=== PATIENT | female | born 1955 | race Caucasian/White ===

== ENCOUNTER 2017-03-12 18:12 | Inpatient (IN) | payer BC, OTHER ==
[2017-03-12] VITALS (9 sets, daily range): BP systolic 120–146; BP diastolic 58–83; PULSE 54–62; RESP 18–20; TEMP 96–97.9; O2SAT 94–99
[~2017-03-12] VITALS: Ht 157.5 cm; Wt 71.2 kg
[~2017-03-12 18:12] MED LIST: ASPI325T PO; ATEN1TAB74 PO; ATOR80TA PO; CALA120T PO; LISI40TA PO
[2017-03-12] MEDS ORDERED: MACR100C3 PO (18:33)
[2017-03-12] MEDS ORDERED: VERA120T3 PO (18:33)
[2017-03-12] MEDS ORDERED: ASPI325T PO (18:33)
[2017-03-12] MEDS ORDERED: ATEN1TAB73 PO (18:33)
[2017-03-12] MEDS ORDERED: BUPR150CR PO (18:33)
[2017-03-12] MEDS ORDERED: TRAM50TA PO (18:37)
[2017-03-12] MEDS ORDERED: SODIUM CHLORIDE 0.9% FLUSH 10 ML FLUSH IVF PRN (18:45)
--- NOTE | 2017-03-12 18:46 | PD ---
HPI Chief Complaint: Neuro Symptoms/ Deficits Time Seen by Provider: 18:28 Travel History International Travel<30 days: No Contact w/Intl Traveler<30days: No Traveled to known affect area: No History of Present Illness HPI 61-year-old female with history of CVA, anemia, anxiety, depression, hyperlipidemia, COPD, basilar artery aneurysm, subarachnoid hemorrhage surgery, here for evaluation of slurred speech, left upper and left lower extremity weakness. Symptoms started today at around 2:00 AM. She presents to the hospital here at around 6:15 PM. She was admitted to the hospital in April 2016 for similar symptoms which she states resolved. At that time she was found have acute/subacute ischemic areas of small strokes of the right parietal and right cerebellar lobes. She was discharged home at that time on aspirin. PFSH Past Medical History Hx Anticoagulant Therapy: Yes (ASA) Anemia: Yes Arthritis: No Anxiety: Yes Depression: Yes Heart Rhythm Problems: No Cancer: No Cardiovascular Problems: Yes High Cholesterol: Yes Chest Pain: No Congestive Heart Failure: No COPD: Yes Cerebrovascular Accident: Yes Diabetes: No Diminished Hearing: No Endocrine: No Genitourinary: No Headaches: Yes Hepatitis: No Hiatal Hernia: No Hypertension: Yes Immune Disorder: No Musculoskeletal: No Neurologic: Yes (Aneurysm ) Psychiatric: No Reproductive: No Respiratory: Yes Migraines: Yes Seizures: No Shingles: Yes Thyroid Disease: Yes (Benign cyst) Influenza Vaccination: No Menopausal: Yes : 3 Para: 2 : 1 Past Surgical History Abdominal Surgery: Yes AICD: No Appendectomy: Yes Cardiac Surgery: No Section: Yes (X's 1) Cholecystectomy: Yes Ear Surgery: No Endocrine Surgery: No Eye Surgery: No Genitourinary Surgery: No Gynecologic Surgery: Yes Hysterectomy: Yes Joint Replacement: No Neurologic Surgery: Yes (BRAIN SURGERY FOR SAH 1985) Oral Surgery: Yes (Broken jaw ) Pacemaker: No Thoracic Surgery: No Tonsillectomy: Yes Other Surgery: Yes (Vascular stents BLLE's ) Social History Alcohol Use: No Tobacco Use: Yes (1 PPD) Substance Use: No Allergies-Medications (Allergen,Severity, Reaction): Coded Allergies: estrogens, conjugated (Unverified Allergy, Severe, RESPIRATORY, 03/12/17) fluoxetine (Unverified Allergy, Severe, RESPIRATORY, 03/12/17) sertraline (Unverified Allergy, Severe, RESPIRATORY, 03/12/17) codeine (Unverified Allergy, Mild, NAUSEATES, 03/12/17) pseudoephedrine (Unverified Allergy, Mild, 03/12/17) egg (Verified Allergy, Unknown, 03/12/17) Reported Meds & Prescriptions Reported Meds & Active Scripts Active Reported Tramadol (Tramadol HCl) 50 Mg Tab 50 Mg PO Q4H PRN Macrodantin (Nitrofurantoin Macrocrystal) 100 Mg Cap 100 Mg PO BID Wellbutrin SR 12 HR (Bupropion HCl) 150 Mg Tab 150 Mg PO Q12HR Tenormin (Atenolol) 25 Mg Tab 25 Mg PO BID Verapamil (Verapamil HCl) 120 Mg Tab 120 Mg PO TID Aspirin 325 Mg Tab 325 Mg PO DAILY Review of Systems Except as stated in HPI: all other systems reviewed are Neg Physical Exam Narrative GENERAL: Well-developed, well-nourished, awake, alert, GCS 15. SKIN: Focused skin assessment warm/dry. HEAD: Atraumatic. Normocephalic. EYES: Pupils equal and round. No scleral icterus. No injection or drainage. ENT: Mucous membranes pink and moist. NECK: Trachea midline. No JVD. CARDIOVASCULAR: Regular rate and rhythm. RESPIRATORY: No accessory muscle use. Clear to auscultation. Breath sounds equal bilaterally. GASTROINTESTINAL: Abdomen soft, non-tender, nondistended. MUSCULOSKELETAL: No obvious deformities. No clubbing. No cyanosis. No edema. NEUROLOGICAL: Awake and alert. Slight left facial droop. Tongue deviation to the right. Muscle strength in right upper and right lower extremities 5 out of 5. Muscle strength in left upper and left upper extremities 4 out of 5 with decrease fancy packer strength on the left. Pronator drift on the left. Normal finger- nose-finger test on the right. Overshoots with [id number] test on the left. Slightly slurred speech. PSYCHIATRIC: Appropriate mood and affect; insight and judgment normal. Data Data Last Documented VS Vital Signs Date Time Temp Pulse Resp B/P (MAP) Pulse Ox O2 Delivery O2 Flow Rate FiO2 03/12/17 20:15 62 20 122/66 (84) 96 Room Air 03/12/17 19:26 2.00 03/12/17 19:15 97.9 Orders Orders Electrocardiogram (03/12/17 18:32) Prothrombin Time / Inr (Pt) (03/12/17 18:32) Act Partial Throm Time (Ptt) (03/12/17 18:32) Complete Blood Count With Diff (03/12/17 18:32) Comprehensive Metabolic Panel (03/12/17 18:32) Urinalysis - C+S If Indicated (03/12/17 18:32) Ct Brain W/O Iv Contrast(Rout) (03/12/17 18:32) Cta Brain W Iv Contrast W 3d (03/12/17 18:32) Cta Neck W Iv Contrast W 3d (03/12/17 18:32) Chest, Single Ap (03/12/17 18:32) Ecg Monitoring (03/12/17 18:32) Iv Access Insert/Monitor (03/12/17 18:32) Oximetry (03/12/17 18:32) Sodium Chloride 0.9% Flush (Ns Flush) (03/12/17 18:45) Ckmb (Isoenzyme) Profile (03/12/17 18:50) Troponin I (03/12/17 18:50) Iohexol 350 Inj (Omnipaque 350 Inj) (03/12/17 19:27) Labs Laboratory Tests Test 03/12/17 18:50 03/12/17 19:20 03/12/17 20:00 White Blood Count 8.5 TH/MM3 Red Blood Count 4.44 MIL/MM3 Hemoglobin 13.7 GM/DL Hematocrit 40.0 % Mean Corpuscular Volume 90.3 FL Mean Corpuscular Hemoglobin 30.9 PG Mean Corpuscular Hemoglobin Concent 34.3 % Red Cell Distribution Width 12.4 % Platelet Count 190 TH/MM3 Mean Platelet Volume 9.6 FL Neutrophils (%) (Auto) 70.8 % Lymphocytes (%) (Auto) 23.6 % Monocytes (%) (Auto) 3.6 % Eosinophils (%) (Auto) 1.1 % Basophils (%) (Auto) 0.9 % Neutrophils # (Auto) 6.0 TH/MM3 Lymphocytes # (Auto) 2.0 TH/MM3 Monocytes # (Auto) 0.3 TH/MM3 Eosinophils # (Auto) 0.1 TH/MM3 Basophils # (Auto) 0.1 TH/MM3 CBC Comment DIFF FINAL Differential Comment Prothrombin Time 9.6 SEC Prothromb Time International Ratio 0.9 RATIO Activated Partial Thromboplast Time 27.7 SEC Blood Urea Nitrogen 19 MG/DL Creatinine 0.67 MG/DL Random Glucose 160 MG/DL Total Protein 6.8 GM/DL Albumin 3.4 GM/DL Calcium Level 8.6 MG/DL Alkaline Phosphatase 81 U/L Aspartate Amino Transf (AST/SGOT) 17 U/L Alanine Aminotransferase (ALT/SGPT) 23 U/L Total Bilirubin 0.3 MG/DL Sodium Level 141 MEQ/L Potassium Level 3.6 MEQ/L Chloride Level 107 MEQ/L Carbon Dioxide Level 29.0 MEQ/L Anion Gap 5 MEQ/L Estimat Glomerular Filtration Rate 90 ML/MIN Total Creatine Kinase 45 U/L Troponin I LESS THAN 0.02 NG/ML Urine Color YELLOW Urine Turbidity SLIGHT Urine pH 7.0 Urine Specific [place] GREATER THAN 1.035 Urine Protein NEG mg/dL Urine Glucose (UA) NEG mg/dL Urine Ketones NEG mg/dL Urine Occult Blood NEG Urine Nitrite NEG Urine Bilirubin NEG Urine Leukocyte Esterase NEG Urine WBC 0-2 /hpf Urine Squamous Epithelial Cells 0-5 /hpf Urine Bacteria OCC /hpf Urine Mucus OCC /lpf Microscopic Urinalysis Comment CULT NOT INDICATED MDM Medical Decision Making Medical Screen Exam Complete: Yes Emergency Medical Condition: Yes Medical Record Reviewed: Yes Interpretation(s) EKG: Sinus, rate 54, normal axis, anterior and lateral T-wave inversions and ST depressions. Differential Diagnosis CVA, ICH, ACS, metabolic abnormality Narrative Course The patient is not a TPA candidate as she presented to the emergency department 14 hours after onset of symptoms. Initial vital signs show heart rate 58, blood pressure 146/66, pulse ox 95% on room air, oral temp of 97.6F. CBC is unremarkable. CMP is remarkable for random glucose 160, otherwise unremarkable. Cardiac enzymes are negative. UA is not suggestive of UTI. CT head: CONCLUSION: 1. Stable basilar tip aneurysm measuring approximately 6 mm. 2. Mild scattered periventricular white matter small vessel ischemic changes bilaterally. 3. Scattered old tiny lacunar infarcts within the bilateral basal ganglia. 4. No acute infarct, acute hemorrhage, midline shift or extra-axial fluid collections. CTA brain: CONCLUSION: 1. Stable basilar tip aneurysm measuring 8 mm in greatest dimension. 2. No new stenosis or occlusion. 3. Stable ectatic carotid siphons and distal right vertebral artery. 4. Stable distal left vertebral artery aneurysms. 5. Patent posterior communicating artery is bilaterally. CTA neck: CONCLUSION: 1. No significant carotid stenosis. 2. Dominant right vertebral artery. Patient and the patient's family were made aware of all findings. She took a full aspirin earlier today. She feels as though her symptoms are slightly improving since being in the emergency department. Again her symptoms include slight left facial droop, right tongue deviation, slight slurred speech, 4/5 muscle strength in her left upper and left lower extremities. Patient will be admitted for further treatment and evaluation of CVA. Case discussed with hospitalist Dr. Nieves who will admit the patient to her service. Diagnosis Primary Impression: CVA (cerebral vascular accident) Qualified Codes: I63.9 - Cerebral infarction, unspecified Admitting Information Admitting Physician Requests: Admit Wayne Hand MD Mar 12, 2017 18:46
--- NOTE | 2017-03-12 19:25 | RADRPT ---
EXAM DATE/TIME: 03/12/2017 19:00 [facility] COMPARISON: CHEST SINGLE AP, April 29, 2016, 19:16. INDICATIONS : Left side weakness MEDICAL HISTORY : Stroke. SURGICAL HISTORY : None. ENCOUNTER: Initial ACUITY: 2 days PAIN SCORE: 0/10 LOCATION: Bilateral chest FINDINGS: The heart is stable. The pulmonary vascular pattern is normal. The lungs are clear. Degenerative c hanges and scoliosis of the thoracic spine are noted. CONCLUSION: 1. No acute cardiopulmonary disease. 2. Degenerative changes and scoliosis of the thoracolumbar spine. Roberto Wood MD on March 12, 2017 at 19:19 Board Certified Radiologist. This report was verified electronically.
[2017-03-12] MEDS ORDERED: IOHEXOL 350 MG/ML 10 ML VIAL (for RAD DIAG) IVCONTRAST ONE (19:27)
[2017-03-12 19:50] LABS: CHLORIDE 107 MEQ/L (98-107); POTASSIUM 3.6 MEQ/L (3.5-5.1); SODIUM (NA) 141 MEQ/L (136-145)
[2017-03-12 19:53] LABS: ANION GAP 5 MEQ/L (5-15)
[2017-03-12 19:54] LABS: BLOOD UREA NITROGEN 19 MG/DL (7-18)
[2017-03-12 19:55] LABS: APTT (PATIENT) 27.7 SEC (24.3-30.1); INTERNATIONAL NORMALIZED RATIO 0.9 RATIO; PROTHROMBIN TIME - PATIENT 9.6 SEC (9.8-11.6)
[2017-03-12 19:56] LABS: ALT (GPT) 23 U/L (10-53); AST (GOT) 17 U/L (15-37); GLOMERULAR FILTRATION RATE 90 ML/MIN (>89)
[2017-03-12 19:58] LABS: TOTAL BILIRUBIN ADULT 0.3 MG/DL (0.2-1.0)
[2017-03-12 19:59] LABS: ALKALINE PHOSPHATASE 81 U/L (45-117)
[2017-03-12 20:00] LABS: CREATINE KINASE 45 U/L (26-192)
[2017-03-12 20:03] LABS: BASOPHIL # 0.1 TH/MM3 (0-0.2); BASOPHIL % 0.9 % (0.0-2.0); EOSINOPHIL # 0.1 TH/MM3 (0-0.4); EOSINOPHIL % 1.1 % (0.0-4.0); HEMO FLAGS DIFF FINAL; LYMPH % 23.6 % (9.0-44.0); MEAN CELL VOLUME 90.3 FL (80.0-100.0); MEAN CORPUSCULAR HEMOGLOBIN 30.9 PG (27.0-34.0); MEAN CORPUSCULAR HGB CONC 34.3 % (32.0-36.0); MONO % 3.6 % (0.0-8.0); NEUT % 70.8 % (16.0-70.0); PLATELET COUNT 190 TH/MM3 (150-450); RED BLOOD COUNT 4.44 MIL/MM3 (4.00-5.30); RED CELL DISTRIBUTION WIDTH 12.4 % (11.6-17.2); WHITE BLOOD COUNT 8.5 TH/MM3 (4.0-11.0)
[2017-03-12 20:12] LABS: BLOOD, URINE NEG (NEG); GLUCOSE,URINE NEG (NEG); KETONE, URINE NEG (NEG); NITRITE,URINE NEG (NEG)
--- NOTE | 2017-03-12 20:19 | RADRPT ---
EXAM DATE/TIME: 03/12/2017 19:27 [facility] COMPARISON: MRI BRAIN W/O CONTRAST, April 30, 2016, 9:27. CT BRAIN W/O CONTRAST, April 29, 2016, 19:31. INDICATIONS : Left upper and lower extremity weakness with slurred speech. RADIATION DOSE: 59.20 CTDIvol (mGy) MEDICAL HISTORY : Aneurysm, intracranial. Hypertension. Cerebrovascular disease. SURGICAL HISTORY : Craniotomy. ENCOUNTER: Initial ACUITY: 1 day PAIN SCALE: 0/10 LOCATION: Cranial TECHNIQUE: Multiple contiguous axial images were obtained of the head. Using automated exposure control and adj ustment of the mA and/or kV according to patient size, radiation dose was kept as low as reasonably a chievable to obtain optimal diagnostic quality images. DICOM format image data is available electro nically for review and comparison. FINDINGS: Tiny old lacunar infarcts are noted within the bilateral basal ganglia. Mild periventricular white matter small vessel ischemic changes are noted bilaterally. There is no acute infarct, acute hemorrhage, midline shift or extra-axial fluid collections. There a basilar tip aneurysm which is stable. This appears to measure 6 mm in size. CONCLUSION: 1. Stable basilar tip aneurysm measuring approximately 6 mm. 2. Mild scattered periventricular white matter small vessel ischemic changes bilaterally. 3. Scattered old tiny lacunar infarcts within the bilateral basal ganglia. 4. No acute infarct, acute hemorrhage, midline shift or extra-axial fluid collections. Roberto Wood MD on March 12, 2017 at 19:59 Board Certified Radiologist. This report was verified electronically.
[2017-03-12 20:21] LABS: URINE COLOR YELLOW (YELLW/STRAW)
[2017-03-12 20:22] LABS: MUCUS URINE OCC /lpf (OCC); SQUAMOUS EPITHELIAL CELL URINE 0-5 /hpf (0-5); WBC, URINE 0-2 /hpf (0-5)
[2017-03-12 20:23] LABS: BACTERIA, URINE OCC /hpf; COMMENT (UR) CULT NOT INDICATED; CULTURE IF INDICATED CULT NOT INDICATED
--- NOTE | 2017-03-12 20:44 | RADRPT ---
EXAM DATE/TIME: 03/12/2017 19:27 [facility] COMPARISON: CTA CAROTID ARTERIES W 3D RECON, April 30, 2016, 16:37. INDICATIONS : Left upper and lower extremity weakness with slurred speech. IV CONTRAST: 100 cc Omnipaque 350 (iohexol) IV ; Cumulative dose for multiple exams. RADIATION DOSE: 42.22 CTDIvol (mGy) ; Combined studies MEDICAL HISTORY : Aneurysm, intracranial. Cerebrovascular disease. Hypertension. SURGICAL HISTORY : Craniotomy. ENCOUNTER: Initial ACUITY: 1 day PAIN SCALE: 0/10 LOCATION: neck Elevated flow velocities and ICA/CCA ratios have been found to correlate with increased degrees of vessel stenosis, calculated as percentage of diameter relative to a normal segment of distal ICA/CCA. TECHNIQUE: Volumetric scanning was performed using a multirow detector CT scanner. The data was post processed with a variety of visualization algorithms including full-volume maximum intensity projection, multip lanar sliding thin-slab reformation, curved-planar reformation, and surface-rendering techniques. Us ing automated exposure control and adjustment of the mA and/or kV according to patient size, radiatio n dose was kept as low as reasonably achievable to obtain optimal diagnostic quality images. DICOM f ormat image data is available electronically for review and comparison. FINDINGS: AORTIC ARCH: There is a three-vessel origin of the great vessels from the aorta. Mild calcified atherosclerotic p laque is again noted within the aortic arch. No evidence of ostial narrowing. RIGHT CAROTID: The common carotid artery is intact. The carotid bulb has a normal configuration without ulceration o r narrowing. Minimal eccentric calcified plaque is noted at the right carotid bifurcation. The [employer] al carotid artery lumen is smooth without stenosis. The external carotid artery is intact. LEFT CAROTID: The common carotid artery is intact. The carotid bulb has a normal configuration without ulceration or narrowing. Mild to moderate calcified plaque is again identified in the proximal internal carotid artery. The external carotid artery is intact. VERTEBRALS: The right vertebral artery remains dominant. No stenotic lesions are seen. CONCLUSION: 1. No significant carotid stenosis. 2. Dominant right vertebral artery. Roberto Wood MD on March 12, 2017 at 20:39 Board Certified Radiologist. This report was verified electronically.
--- NOTE | 2017-03-12 20:56 | RADRPT ---
EXAM DATE/TIME: 03/12/2017 19:27 [facility] COMPARISON: CTA BRAIN W 3D RECON, April 30, 2016, 16:37. INDICATIONS : Left upper and lower extremity weakness with slurred speech. IV CONTRAST: 100 cc Omnipaque 350 (iohexol) IV ; Cumulative dose for multiple exams. RADIATION DOSE: 42.22 CTDIvol (mGy) ; Combined studies MEDICAL HISTORY : Aneurysm, intracranial. Hypertension. Cerebrovascular disease. SURGICAL HISTORY : Craniotomy. ENCOUNTER: Initial ACUITY: 1 day PAIN SCALE: 0/10 LOCATION: Cranial TECHNIQUE: Volumetric scanning was performed using a multi-row detector CT scanner. The data was post processed with a variety of visualization algorithms including full volume maximum intensity projection, multi -planar sliding thin slab reformation, curved planar reformation, and surface rendering techniques. Using automated exposure control and adjustment of the mA and/or kV according to patient size, radiat ion dose was kept as low as reasonably achievable to obtain optimal diagnostic quality images. DICO M format image data is available electronically for review and comparison. FINDINGS: The carotid siphons remains ectatic. No significant stenosis or occlusion of the middle or anterior cerebral arteries is noted. Bilateral posterior communicating arteries are again noted and supply th e posterior cerebral arteries bilaterally. No aneurysm is identified within the anterior circulation . There is a stable basilar tip aneurysm which measures 8 mm in greatest dimension. The right verte bral artery is again ectatic in appearance. Aneurysm of the right distal vertebral artery proximal t o the PICA origin is again noted. Left vertebral artery again terminates in the PICA. CONCLUSION: 1. Stable basilar tip aneurysm measuring 8 mm in greatest dimension. 2. No new stenosis or occlusion. 3. Stable ectatic carotid siphons and distal right vertebral artery. 4. Stable distal left vertebral artery aneurysms. 5. Patent posterior communicating artery is bilaterally. Roberto Wood MD on March 12, 2017 at 20:34 Board Certified Radiologist. This report was verified electronically.
[2017-03-12] MEDS ORDERED: ENALAPRILAT 1.25 MG/ML VIAL IV PRN (21:15)
[2017-03-12] MEDS ORDERED: GLUCAGON 1 MG/ML VIAL OTHER PRN (21:15)
[2017-03-12] MEDS ORDERED: SODIUM CHLORIDE 0.9% FLUSH 5 ML FLUSH IV FLUSH PRN (21:15)
[2017-03-12] MEDS ORDERED: DEXTROSE 50% IN WATER 50 ML VIAL(D50) IV PUSH PRN (21:15)
[2017-03-12] MEDS: SODIUM CHLOR 0.9% 1000 ML INJ 1,000 ML IV SCH ×2 (22:00→22:15)
[2017-03-13] VITALS (8 sets, daily range): BP systolic 134–147; BP diastolic 66–87; PULSE 50–60; RESP 18–20; TEMP 95.7–98.1; O2SAT 93–98
[2017-03-13] MEDS ORDERED: INSULIN ASPART SUPPLEMENTAL SCALE SQ SCH (07:00)
[2017-03-13] MEDS: SODIUM CHLOR 0.9% 1000 ML INJ 1,000 ML IV SCH (08:00)
[2017-03-13] MEDS ORDERED: NALOXONE HCL 0.4 MG/ML AMP IV PRN (08:30)
[2017-03-13] MEDS ORDERED: MAGNESIUM HYDROXIDE SUSP 30 ML CUP PO PRN (08:30)
[2017-03-13] MEDS ORDERED: BISACODYL 10 MG SUPP RECTAL PRN (08:30)
[2017-03-13] MEDS ORDERED: LACTULOSE SYRUP 20 GM/30 ML CUP PO PRN (08:30)
[2017-03-13] MEDS ORDERED: ONDANSETRON HCL 4 MG/2 ML VIAL IVP PRN (08:30)
[2017-03-13] MEDS ORDERED: ACETAMINOPHEN 325 MG TAB PO PRN ×2 (08:30)
[2017-03-13] MEDS ORDERED: SENNOSIDES 8.6 MG TAB PO PRN (08:30)
[2017-03-13 08:56] LABS: CREATINE KINASE 43 U/L (26-192)
[2017-03-13] MEDS: SODIUM CHLORIDE 0.9% FLUSH 5 ML FLUSH IV FLUSH SCH ×2 (09:00→20:48)
[2017-03-13] MEDS ORDERED: ASPIRIN 300 MG SUPP RECTAL SCH (09:00)
[2017-03-13] MEDS: DOCUSATE SODIUM 50 MG/SENNA 8.6 MG TAB PO SCH ×2 (09:00→20:47)
[2017-03-13] MEDS ORDERED: ASPIRIN 300 MG SUPP RECTAL PRN (09:45)
--- NOTE | 2017-03-13 09:59 | HHI.HP ---
[facility] Beckie Atkinson D.O. Admission Diagnosis CVA Diagnoses: Chief Complaint: Strokelike symptoms Travel History International Travel<30 Days: No Contact w/Intl Traveler <30 Da: No Traveled to Known Affected Are: No History of Present Illness This is a 61-year-old female with a history of CVA with no residual deficits, anemia, hyperlipidemia, PAD, COPD, basilar artery aneurysm, subarachnoid hemorrhage and tobacco abuse. She presents to the emergency department because of neuro symptoms. 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 She came home from work early yesterday morning and her noted that she was slurred and dragging her left lower extremity. She also felt she was dropping things from her left hand. She refused to come to the hospital and went to bed. She woke up later and did not notice any deficits and reported to work. When she arrived she felt nauseous and her coworkers noticed that she didn't look right. She drove back home and then came to the hospital. She has history of acute/subacute ischemic areas of small strokes of the right parietal and right cerebral lobes in April 2016 and has been taking aspirin. At this time, she feels better but still feels weak on the left upper and left lower extremities. Nausea has resolved and asking for food. Reports she had 4 loose stools after receiving oral contrast. Denies abdominal pain, fever, chills, headache, visual change, neck pain, chest pain and shortness of breath. All other systems reviewed negative. Review of Systems Except as stated in HPI: all other systems reviewed are Neg Past Family Social History Past Medical History As previously mentioned Past Surgical History Appendectomy, section, cholecystectomy, hysterectomy oral surgery, tonsillectomy and vascular stenting of bilateral lower extremities Reported Medications Tramadol (Tramadol HCl) 50 Mg Tab 50 Mg PO Q4H PRN Macrodantin (Nitrofurantoin Macrocrystal) 100 Mg Cap 100 Mg PO BID Wellbutrin SR 12 HR (Bupropion HCl) 150 Mg Tab 150 Mg PO Q12HR Tenormin (Atenolol) 25 Mg Tab 25 Mg PO BID Verapamil (Verapamil HCl) 120 Mg Tab 120 Mg PO TID Aspirin 325 Mg Tab 325 Mg PO DAILY Allergies: Coded Allergies: estrogens, conjugated (Unverified Allergy, Severe, RESPIRATORY, 03/12/17) fluoxetine (Unverified Allergy, Severe, RESPIRATORY, 03/12/17) sertraline (Unverified Allergy, Severe, RESPIRATORY, 03/12/17) codeine (Unverified Allergy, Mild, NAUSEATES, 03/12/17) pseudoephedrine (Unverified Allergy, Mild, 03/12/17) egg (Verified Allergy, Unknown, 03/12/17) Family History CVA Social History Smokes a pack per day. Does not drink. Physical Exam Vital Signs Vital Signs Date Time Temp Pulse Resp B/P (MAP) Pulse Ox O2 Delivery O2 Flow Rate FiO2 03/13/17 08:21 95.7 60 19 134/66 (88) 98 03/13/17 08:09 50 03/13/17 04:00 96.3 58 20 144/75 (98) 93 03/12/17 23:26 96 21 03/12/17 23:00 57 03/12/17 22:21 96.0 54 20 142/80 (100) 95 03/12/17 22:12 56 20 137/68 (91) 98 03/12/17 21:15 56 20 120/83 (95) 99 Room Air 03/12/17 20:15 62 20 122/66 (84) 96 Room Air 03/12/17 19:26 62 20 97 2.00 03/12/17 19:15 97.9 57 20 146/58 (87) 94 03/12/17 18:36 55 18 146/58 (87) 97 Room Air 03/12/17 18:30 57 03/12/17 18:22 97.6 58 18 146/66 (92) 95 Physical Exam GENERAL: This is a well-nourished, well-developed patient, in no apparent distress. SKIN: No rashes, ecchymoses or lesions. Cool and dry. HEAD: Atraumatic. Normocephalic. No temporal or scalp tenderness. EYES: Pupils equal round and reactive. Extraocular motions intact. No scleral icterus. No injection or drainage. ENT: Nose without bleeding, purulent drainage or septal hematoma. Throat without erythema, tonsillar hypertrophy or exudate. Uvula midline. Airway patent. NECK: Trachea midline. No JVD or lymphadenopathy. Supple, nontender, no meningeal signs. CARDIOVASCULAR: Regular rate and rhythm without murmurs, gallops, or rubs. RESPIRATORY: Clear to auscultation. Breath sounds equal bilaterally. No wheezes , rales, or rhonchi. GASTROINTESTINAL: Abdomen soft, non-tender, nondistended. No guarding. MUSCULOSKELETAL: Extremities without clubbing, cyanosis, or edema. No joint tenderness, effusion, or edema noted. No calf tenderness. Negative Homans sign bilaterally. NEUROLOGICAL: Awake and alert. Cranial nerves II through XII intact. Sensory grossly within normal limits. She is weak left upper and lower extremities but able to raise against resistance . Normal speech. Laboratory Laboratory Tests Test 03/12/17 18:50 03/12/17 19:20 03/12/17 20:00 03/13/17 05:49 White Blood Count 8.5 Red Blood Count 4.44 Hemoglobin 13.7 Hematocrit 40.0 Mean Corpuscular Volume 90.3 Mean Corpuscular Hemoglobin 30.9 Mean Corpuscular Hemoglobin Concent 34.3 Red Cell Distribution Width 12.4 Platelet Count 190 Mean Platelet Volume 9.6 Neutrophils (%) (Auto) 70.8 Lymphocytes (%) (Auto) 23.6 Monocytes (%) (Auto) 3.6 Eosinophils (%) (Auto) 1.1 Basophils (%) (Auto) 0.9 Neutrophils # (Auto) 6.0 Lymphocytes # (Auto) 2.0 Monocytes # (Auto) 0.3 Eosinophils # (Auto) 0.1 Basophils # (Auto) 0.1 CBC Comment DIFF FINAL Differential Comment Prothrombin Time 9.6 Prothromb Time International Ratio 0.9 Activated Partial Thromboplast Time 27.7 Blood Urea Nitrogen 19 Creatinine 0.67 Random Glucose 160 Total Protein 6.8 Albumin 3.4 Calcium Level 8.6 Alkaline Phosphatase 81 Aspartate Amino Transf (AST/SGOT) 17 Alanine Aminotransferase (ALT/SGPT) 23 Total Bilirubin 0.3 Sodium Level 141 Potassium Level 3.6 Chloride Level 107 Carbon Dioxide Level 29.0 Anion Gap 5 Estimat Glomerular Filtration Rate 90 Total Creatine Kinase 45 Troponin I LESS THAN 0.02 Urine Color YELLOW Urine Turbidity SLIGHT Urine pH 7.0 Urine Specific [place] GREATER THAN 1.035 Urine Protein NEG Urine Glucose (UA) NEG Urine Ketones NEG Urine Occult Blood NEG Urine Nitrite NEG Urine Bilirubin NEG Urine Leukocyte Esterase NEG Urine WBC 0-2 Urine Squamous Epithelial Cells 0-5 Urine Bacteria OCC Urine Mucus OCC Microscopic Urinalysis Comment CULT NOT INDICATED Test 03/13/17 07:50 Total Creatine Kinase 43 Troponin I LESS THAN 0.02 Result Diagram: 03/12/17 1850 03/12/171919 Imaging EKG tracing reviewed by me with sinus rhythm to inversion in V1 to V6 Chest x-ray image interpreted by me with no acute cardiopulmonary disease Last Impressions Neck CTA 03/12/171831 Signed Impressions: Service Date/Time: Sunday, March 12, 2017 19:27 - CONCLUSION: 1. No significant carotid stenosis. 2. Dominant right vertebral artery. Roberto Wood MD Head CTA 03/12/171831 Signed Impressions: Service Date/Time: Sunday, March 12, 2017 19:27 - CONCLUSION: 1. Stable basilar tip aneurysm measuring 8 mm in greatest dimension. 2. No new stenosis or occlusion. 3. Stable ectatic carotid siphons and distal right vertebral artery. 4. Stable distal left vertebral artery aneurysms. 5. Patent posterior communicating artery is bilaterally. Roberto Wood MD Head CT 03/12/171831 Signed Impressions: Service Date/Time: Sunday, March 12, 2017 19:27 - CONCLUSION: 1. Stable basilar tip aneurysm measuring approximately 6 mm. 2. Mild scattered periventricular white matter small vessel ischemic changes bilaterally. 3. Scattered old tiny lacunar infarcts within the bilateral basal ganglia. 4. No acute infarct, acute hemorrhage, midline shift or extra-axial fluid collections. Roberto Wood MD Chest X-Ray 03/12/171831 Signed Impressions: Service Date/Time: Sunday, March 12, 2017 19:00 - CONCLUSION: 1. No acute cardiopulmonary disease. 2. Degenerative changes and scoliosis of the thoracolumbar spine. MD Alessandro Posadasi VTE Risk Assessment Caprini VTE Risk Assessment: Mod/High Risk (score >= 2) Caprini Risk Assessment Model Point Value = 1 Point Value = 2 Point Value = 3 Point Value = 5 Age 41-60 Minor surgery BMI > 25 kg/m2 Swollen legs Varicose veins or History of unexplained or recurrent spontaneous Oral contraceptives or hormone replacement Sepsis (< 1 month) Serious lung disease, including pneumonia (< 1 month) Abnormal pulmonary function Acute myocardial infarction Congestive heart failure (< 1 month) History of inflammatory bowel disease Medical patient at bed rest Age 61-74 Arthroscopic surgery Major open surgery (> 45 min) Laparoscopic surgery (> 45 min) Malignancy Confined to bed (> 72 hours) Immobilizing plaster cast Central venous access Age >= 75 History of VTE Family history of VTE Factor V Leiden Prothrombin 29147H Lupus anticoagulant Anticardiolipin antibodies Elevated serum homocysteine Heparin-induced thrombocytopenia Other congenital or acquired thrombophilia Stroke (< 1 month) Elective arthroplasty Hip, pelvis, or leg fracture Acute spinal cord injury (< 1 month) Prophylaxis Regimen Total Risk Factor Score Risk Level Prophylaxis Regimen 0-1 Low Early ambulation 2 Moderate Order ONE of the following: *Sequential Compression Device (SCD) *Heparin 5000 units SQ BID 3-4 Higher Order ONE of the following medications: *Heparin 5000 units SQ TID *Enoxaparin/Lovenox 40 mg SQ daily (WT < 150 kg, CrCl > 30 mL/min) *Enoxaparin/Lovenox 30 mg SQ daily (WT < 150 kg, CrCl > 10-29 mL/min) *Enoxaparin/Lovenox 30 mg SQ BID (WT < 150 kg, CrCl > 30 mL/min) AND/OR *Sequential Compression Device (SCD) 5 or more Highest Order ONE of the following medications: *Heparin 5000 units SQ TID (Preferred with Epidurals) *Enoxaparin/Lovenox 40 mg SQ daily (WT < 150 kg, CrCl > 30 mL/min) *Enoxaparin/Lovenox 30 mg SQ daily (WT < 150 kg, CrCl > 10-29 mL/min) *Enoxaparin/Lovenox 30 mg SQ BID (WT < 150 kg, CrCl > 30 mL/min) AND *Sequential Compression Device (SCD) Assessment and Plan Problem List: (1) Slurred speech ICD Code: R47.81 - Slurred speech Status: Acute Assessment and Plan This is a 61-year-old female with a history of CVA with no residual deficits, anemia, hyperlipidemia, PAD, COPD, basilar artery aneurysm, subarachnoid hemorrhage and tobacco abuse. She presents to the emergency department because of neuro symptoms. Slurred speech and left-sided weakness with a history of CVA. This is likely CVA. Stroke workup underway. MRI and MRA of the brain, echocardiogram and monitor on telemetry. Risk factor modifications. Obtain lipid profile and A1c. Tobacco cessation. Consult neurology, PT, OT and ST. Allow permissive hypertension with IV fluids and hold BP medications for now. EKG shows NSR with normal intervals, normal QRS complexes, no ST elevation or depression, and no arrhythmias. The patient denies chest pain. CK and troponin within normal limits. Likely related to LEAD FORMER insult. Trend cardiac enzymes. She will need stress test at some point Diarrhea likely secondary to contrast. IVF and rpt BMP. Monitor for dehydration Partially treated UTI. Asymptomatic. Complete treatment of Macrodantin. DVT prophylaxis with SCD. We'll start pharmacological prophylaxis pending MRI of the brain Code Status full Discussed Condition With pt Dima Torrez MD Mar 13, 2017 09:59
[2017-03-13] MEDS: NITROFURANTOIN MONOHYD MACROCR 100 MG CAP PO SCH ×2 (10:03→17:53)
[2017-03-13] MEDS: ASPIRIN 325 MG TAB PO SCH (10:03)
[2017-03-13] MEDS: buPROPion HCL 150 MG SUSTAINED RELEASE TAB PO SCH ×2 (10:04→20:47)
[2017-03-13] MEDS: NICOTINE 21 MG/24 HR PATCH T-DERMAL SCH (10:05)
[2017-03-13 10:12] LABS: HDL CHOLESTEROL 39.5 MG/DL (40.0-60.0); LDL CHOLESTEROL 102 MG/DL (0-99)
--- NOTE | 2017-03-13 10:29 | MB ---
cc: YOVANY NJ M.D. DATE OF CONSULTATION: 03/13/2017 HISTORY OF PRESENT ILLNESS Kerri Saldana is a 61-year-old seen in neurological consultation in regards to new onset left-sided weakness and slurred speech. The patient describes that a year ago she had a stroke with somewhat similar symptoms. She then was started on aspirin. She recovered well from that stroke. She also has a history of subarachnoid hemorrhage and known basilar tip aneurysm. She had a bleeding in 1985 and they considered surgery but the aneurysm was in an area felt to be inoperable. She recovered well from that aneurysmal subarachnoid hemorrhage. She was recently started on Wellbutrin. She has a history of hyperlipidemia, COPD and migraines. She has been on aspirin since April last year. She is also on tramadol, Tenormin, Verapamil, Macrodantin. No lipid-lowering agents. She smokes a pack a day, no substance abuse. NEUROLOGIC EXAMINATION Shows an alert and pleasant woman. Speech is mildly dysarthric. Ocular movements and visual smalls are full. There is slight left facial weakness. She does have some left hemiparesis, she raises the arm and there is pronation drift on the left and there is weakness on the left adult care provider and fine finger coordination, though she feels better today than yesterday. Left lower extremity also is mild to moderately weak on the bedside exam. Reflexes brisker on the left, plantar response probably extensor bilaterally. ANCILLARY DATA The CT brain shows old lacunars bilateral basal ganglia. CT angio head and neck shows the stable 8 mm basilar tip aneurysm. The right vertebra is dominant. No significant carotid artery disease. ASSESSMENT New left-sided weakness and dysarthric speech. MRI of brain pending. Suspect new lacunar stroke. She has been on aspirin. Management is difficult because she has known basilar tip aneurysm and it bled in 1985. Checking a lipid profile and considering a statin as well. Will consider adding Plavix to a baby aspirin but only for a period of 4 weeks or so. Rehab. I will follow the neurological care. Thank you for asking us to participate in her care. Yovany Nj MD OFC/TLL /8:57 AM /10:12 AM
[2017-03-13] MEDS: INSULIN ASPART SUPPLEMENTAL SCALE SQ SCH ×3 (12:00→20:47)
[2017-03-13] MEDS: LACTOBACILLUS ACIDOPHILUS TAB PO SCH ×2 (15:28→17:53)
--- NOTE | 2017-03-13 15:29 | RADRPT ---
EXAM DATE/TIME: 03/13/2017 13:15 [facility] COMPARISON: MRI BRAIN W/O CONTRAST, April 30, 2016, 9:27. INDICATIONS : CVA. MEDICAL HISTORY : Stroke Hypertension. Aneurysm, intracranial. SURGICAL HISTORY : Cholecystectomy. Appendectomy. Hysterectomy. Tonsils, . ENCOUNTER: Initial ACUITY: 2 day PAIN SCORE: 2/10 LOCATION: Bilateral cranial TECHNIQUE: Multiplanar, multisequence MRI of the brain was performed without contrast. FINDINGS: MRI of the brain is performed in sagittal, axial and coronal planes. The craniocervical junction and midline structures are unremarkable. Diffusion weighted images demonstrate acute infarct in the insul ar cortex on the right side measuring 15 mm in diameter with a second area of white matter abnormalit y just H. year the right lateral ventricle.. There is no evidence of acute cortical infarction, acute hemorrhage, mass effect or midline shift is seen. There is periventricular hyperintensity on the T2 weighted images consistent with small vessel vascular disease significantly more than expected in a p atient of this age.there is also chronic ischemic change in the brainstem at the level of the middle cerebellar peduncle and within the left cerebellar hemisphere. Posterior fossa structures are unremar kable. CONCLUSION: 1. Acute infarct involving insular cortex on the right side. No hemorrhage is seen. Mulugeta James MD on March 13, 2017 at 15:24 Board Certified Radiologist. This report was verified electronically.
[2017-03-13] MEDS: traMADol HCL 50 MG TAB PO PRN ×2 (15:35→20:52)
[2017-03-13] MEDS ORDERED: ATOR20TA15 PO (15:38)
--- NOTE | 2017-03-13 15:39 | HHI.DCPOC ---
Discharge Care Plan Diagnosis: (1) Slurred speech Your Health Problems Are: Difficulty with ADL Exercise Tolerance Goals to Promote Your Health * To prevent worsening of your condition and complications * To maintain your health at the optimal level Directions to Meet Your Goals Take your medications as prescribed Follow your dietary instruction Follow activity as directed Keep your appointments as scheduled Take your immunizations and boosters as scheduled If your symptoms worsen call your PCP, if no PCP go to Urgent Care Center or Emergency Room Smoking is Dangerous to Your Health. Avoid second hand smoke Call the 24-hour hour crisis hotline for domestic abuse at Dima Torrez MD Mar 13, 2017 15:39
[2017-03-13 15:42] LABS: HEMOGLOBIN A1a 1.3 %; HEMOGLOBIN A1b 0.8 %; HEMOGLOBIN Ao 84.7 %; HEMOGLOBIN F 1.5 %; HEMOGLOBIN LA1C 1.9 %; HEMOGLOBIN P3 3.8 %
--- NOTE | 2017-03-13 15:45 | RADRPT ---
EXAM DATE/TIME: 03/13/2017 13:15 [facility] COMPARISON: CTA CAROTID ARTERIES W 3D RECON, March 12, 2017, 19:27. MRI BRAIN W/O CONTRAST, March 13, 2017, 13 :15. CTA BRAIN W 3D RECON, March 12, 2017, 19:27. INDICATIONS : CVA. MEDICAL HISTORY : Stroke Aneurysm, intracranial. SURGICAL HISTORY : Cholecystectomy. Appendectomy. Hysterectomy. Tonsils, Stents, . ENCOUNTER: Initial ACUITY: 3 day PAIN SCORE: 1/10 LOCATION: Bilateral cranial Please note a normal MRA of the brain does not entirely exclude the possibility of a small aneurysm, nor the possibility of distal intracranial vessel disease. TECHNIQUE: 3D time of flight MRA was performed. Source images, multiplanar STS MIP, and 3D volume MIP reconstru ctions were reviewed. FINDINGS: Markedly irregular dolichoectasia of the vertebrobasilar system is noted with areas of mild fusiform aneurysmal dilatation involving the distal right vertebral artery and a saccular aneurysm at the basi lar tip, unchanged from comparison. The posterior cerebral arteries arise in fashion. The anter ior circulation is stable and intact. CONCLUSION: Stable abnormal appearance of the [place] structures. Evangelist Siegel MD on March 13, 2017 at 15:39 Board Certified Radiologist. This report was verified electronically.
--- NOTE | 2017-03-13 15:50 | EKG ---
Date Performed: 03/12/2017 Time Performed: 18:40:29 PTAGE: 61 years EKG: SINUS BRADYCARDIA ST DEVIATION AND MODERATE T-WAVE ABNORMALITY, CONSIDER ANTEROLATERAL ISCH EMIA ABNORMAL ECG Compared to PREVIOUS TRACING , precordial T-wave changes are somewhat more prominent, consider ischem ia. PREVIOUS TRACIN04/29/2016 19.03 DOCTOR: Ravinder Weiss Interpretating Date/Time 03/13/2017 15:49:15
--- NOTE | 2017-03-13 15:51 | EKG ---
Date Performed: 03/13/2017 Time Performed: 10:21:14 PTAGE: 61 years EKG: SINUS BRADYCARDIA MINIMAL VOLTAGE CRITERIA FOR LVH, CONSIDER NORMAL VARIANT NONSPECIFIC T-W AVE ABNORMALITY BORDERLINE ECG Since PREVIOUS TRACING , no significant change noted PREVIOUS TRACIN03/12/2017 18.40 DOCTOR: Ravinder Weiss Interpretating Date/Time 03/13/2017 15:49:22
[2017-03-13] MEDS: ATORVASTATIN 20 MG TAB PO SCH (20:47)
[2017-03-14] VITALS (7 sets, daily range): BP systolic 136–193; BP diastolic 71–91; PULSE 52–67; RESP 16–19; TEMP 96–97.2; O2SAT 95–98
[2017-03-14] MEDS: SODIUM CHLOR 0.9% 1000 ML INJ 1,000 ML IV SCH ×2 (05:41→20:09)
[2017-03-14 06:26] LABS: POTASSIUM 3.4 MEQ/L (3.5-5.1)
[2017-03-14 06:29] LABS: BICARBONATE 25.6 MEQ/L (21.0-32.0)
[2017-03-14] MEDS: INSULIN ASPART SUPPLEMENTAL SCALE SQ SCH ×4 (06:37→19:54)
[2017-03-14] MEDS: NICOTINE 21 MG/24 HR PATCH T-DERMAL SCH (09:00)
[2017-03-14] MEDS: DOCUSATE SODIUM 50 MG/SENNA 8.6 MG TAB PO SCH ×2 (09:00→19:54)
[2017-03-14] MEDS: SODIUM CHLORIDE 0.9% FLUSH 5 ML FLUSH IV FLUSH SCH ×2 (09:00→19:53)
[2017-03-14] MEDS: REMOVE OLD PATCH T-DERMAL SCH (09:00)
[2017-03-14] MEDS: LACTOBACILLUS ACIDOPHILUS TAB PO SCH ×3 (09:02→17:22)
[2017-03-14] MEDS: NITROFURANTOIN MONOHYD MACROCR 100 MG CAP PO SCH ×2 (09:03→17:22)
[2017-03-14] MEDS: ASPIRIN 325 MG TAB PO SCH (09:03)
[2017-03-14] MEDS: buPROPion HCL 150 MG SUSTAINED RELEASE TAB PO SCH ×2 (09:03→20:09)
[2017-03-14] MEDS ORDERED: POTASSIUM CHLORIDE 10 MEQ CONTROLLED RELEASE TAB PO ONE (10:30)
--- NOTE | 2017-03-14 12:02 | HHI.PR ---
Subjective Remarks Follow-up CVA. Denies nausea. Improving left-sided weakness. Able to feed himself ambulated hallway. Discussed with RN, patient medically stable for discharge pending echocardiogram. Also need clarification with neurology if Plavix needs to be added Objective Vitals Vital Signs Date Time Temp Pulse Resp B/P (MAP) Pulse Ox O2 Delivery O2 Flow Rate FiO2 03/14/17 08:21 96.6 59 19 136/82 (100) 96 03/14/17 04:25 96.6 60 18 192/71 (111) 98 03/14/17 00:00 96.5 63 18 161/79 (106) 95 03/13/17 21:00 94 21 03/13/17 20:00 98.1 58 18 147/87 (107) 95 03/13/17 20:00 55 03/13/17 17:57 96.3 57 18 141/80 (100) 96 03/13/17 16:35 18 03/13/17 15:00 54 03/13/17 12:58 98.1 59 19 143/86 (105) 93 I/O 03/13/17 03/13/17 03/13/17 03/14/17 03/14/17 03/14/17 07:00 15:00 23:00 07:00 15:00 23:00 Intake Total 560 ml 100 ml 897 ml 966 ml 227 ml Balance 560 ml 100 ml 897 ml 966 ml 227 ml Intake Oral 0 ml 100 ml IV Total 560 ml 897 ml 966 ml 227 ml # Voids 3 # Bowel Movements 1 1 Result Diagram: 03/12/17 1850 03/14/17 0527 Imaging Last Impressions Head Magnetic Resonance Angiography 03/13/17 0000 Signed Impressions: Service Date/Time: Monday, March 13, 2017 13:15 - CONCLUSION: Stable abnormal appearance of the [place] structures. Evangelist Siegel MD Brain MRI 03/13/17 0000 Signed Impressions: Service Date/Time: Monday, March 13, 2017 13:15 - CONCLUSION: 1. Acute infarct involving insular cortex on the right side. No hemorrhage is seen. Mulugeta James MD Neck CTA 03/12/17 1832 Signed Impressions: Service Date/Time: Sunday, March 12, 2017 19:27 - CONCLUSION: 1. No significant carotid stenosis. 2. Dominant right vertebral artery. Roberto Wood MD Head CTA 03/12/171831 Signed Impressions: Service Date/Time: Sunday, March 12, 2017 19:27 - CONCLUSION: 1. Stable basilar tip aneurysm measuring 8 mm in greatest dimension. 2. No new stenosis or occlusion. 3. Stable ectatic carotid siphons and distal right vertebral artery. 4. Stable distal left vertebral artery aneurysms. 5. Patent posterior communicating artery is bilaterally. Roberto Wood MD Head CT 03/12/171831 Signed Impressions: Service Date/Time: Sunday, March 12, 2017 19:27 - CONCLUSION: 1. Stable basilar tip aneurysm measuring approximately 6 mm. 2. Mild scattered periventricular white matter small vessel ischemic changes bilaterally. 3. Scattered old tiny lacunar infarcts within the bilateral basal ganglia. 4. No acute infarct, acute hemorrhage, midline shift or extra-axial fluid collections. Roberto Wood MD Chest X-Ray 03/12/171831 Signed Impressions: Service Date/Time: Sunday, March 12, 2017 19:00 - CONCLUSION: 1. No acute cardiopulmonary disease. 2. Degenerative changes and scoliosis of the thoracolumbar spine. Roberto Wood MD Objective Remarks Well-developed, well-nourished in no distress Skin is intact with no rashes No JVD no bruit Pupils equal and reactive to light no jaundice Regular rate and rhythm Equal in expansion clear to auscultation Abdomen soft nontender extremities no edema or cyanosis Alert and oriented with slight weakness of the left upper extremity. Procedures none A/P Problem List: (1) Slurred speech ICD Code: R47.81 - Slurred speech Status: Acute (2) CVA (cerebral vascular accident) ICD Code: I63.9 - Cerebral infarction, unspecified Status: Acute Assessment and Plan This is a 61-year-old female with a history of CVA with no residual deficits, anemia, hyperlipidemia, PAD, COPD, basilar artery aneurysm, subarachnoid hemorrhage and tobacco abuse. She presents to the emergency department because of neuro symptoms. Right CVA with left-sided weakness and slurred speech. Improving continue to monitor on telemetry. Risk factor modifications. A1c 5.7. LDL 102, agrees to be on Lipitor. Tobacco cessation. Consulted neurology, PT, OT and ST. Refusing rehabilitation EKG shows NSR with normal intervals, normal QRS complexes, no ST elevation or depression, and no arrhythmias. The patient denies chest pain. CK and troponin within normal limits. 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 Negative cardiac enzymes. She will need stress test at some point Diarrhea likely secondary to contrast. Improved. Monitor for dehydration Partially treated UTI. Asymptomatic. Complete treatment of Macrodantin last dose tomorrow DVT prophylaxis with SCD. Pharmacological prophylaxis if okay with neurology Discharge Planning Discharge patient to home with home care PT and visiting nurse if cleared by neurology pending echocardiogram Condition on discharge: Improved Regular Diet as tolerated Ad Ly activity no driving Rx written: Lipitor. Plavix if recommended by neurology Follow-up with primary care physician and neurology Problem Qualifiers (1) CVA (cerebral vascular accident): Qualified Codes: I63.9 - Cerebral infarction, unspecified Dima Torrez MD Mar 14, 2017 12:02
--- NOTE | 2017-03-14 14:14 | HHI.FF ---
Face to Face Verification Diagnosis: (1) CVA (cerebral vascular accident) Physical Therapy Order: Evaluate and Treat, Improve ambulation, Strength and gait training Home Health Nursing Order: Medical education Signs/symptoms of disease process Medication education-adverse effect Nursing assessment with vital signs I have seen patient Kerri Saldana on 03/14/17. My clinical findings support the need for the requested home health care services because: Ltd mobility - disease progression I certify that my clinical findings support that this patient is homebound because: Unsafe to leave home unassisted Dima Torrez MD Mar 14, 2017 14:14
--- NOTE | 2017-03-14 14:54 | ECHRPT ---
Indication: cva/tia CONCLUSIONS The left ventricular systolic function is normal with an estimated ejection fraction in the range of 55-60%. Normal left ventricular size. Cannoy exclude basal inferior akinesis. Mild mitral valve regurgitation. No aortic valve regurgitation. No aortic valve stenosis. There is mild tricuspid valve regurgitation. There is estimated mild pulmonary hypertension present (range 40-50 mmHg). The pulmonary valve is not well visualized. BP: / HR: Rhythm: MEASUREMENTS (Male / Female) Normal Values Technical Quality:Good 2D ECHO LV Diastolic Diameter PLAX 4.6 cm 4.2 - 5.9 / 3.9 - 5.3 cm LV Systolic Diameter PLAX 3.4 cm IVS Diastolic Thickness 1.6 cm 0.6 - 1.0 / 0.6 - 0.9 cm LVPW Diastolic Thickness 1.0 cm 0.6 - 1.0 / 0.6 - 0.9 cm LV Relative Wall Thickness 0.6 RV Internal Dim ED PLAX 3.1 cm M-MODE Aortic Root Diameter MM 2.6 cm LA Systolic Diameter MM 3.2 cm LA Ao Ratio MM 1.2 AV Cusp Separation MM 1.8 cm DOPPLER Mitral E Point Velocity 65.2 cm/s Mitral A Point Velocity 55.8 cm/s Mitral E to A Ratio 1.2 LV E' Lateral Velocity 15.2 cm/s Mitral E to LV E' Lateral Ratio 4.3 LV E' Septal Velocity 8.6 cm/s Mitral E to LV E' Septal Ratio 7.6 TR Peak Velocity 381.0 cm/s TR Peak Gradient 58.1 mmHg FINDINGS LEFT VENTRICLE The left ventricular systolic function is normal with an estimated ejection fraction in the range of 55-60%. Normal left ventricular size. Cannoy exclude basal inferior akinesis. RIGHT VENTRICLE Normal right ventricular size and systolic function. LEFT ATRIUM The left atrial size is normal. RIGHT ATRIUM The right atrial size is normal. ATRIAL SEPTUM Normal atrial septal thickness without atrial level shunting by limited color doppler interrogation. AORTA The aortic root and proximal ascending aorta are normal in size on limited imaging. MITRAL VALVE Structurally normal mitral valve. Mild mitral valve regurgitation. AORTIC VALVE Trileaflet aortic valve. No aortic valve regurgitation. No aortic valve stenosis. TRICUSPID VALVE Structurally normal tricuspid valve. There is mild tricuspid valve regurgitation. There is estimated mild pulmonary hypertension present (range 40-50 mmHg). PULMONARY VALVE The pulmonary valve is not well visualized. VESSELS The inferior vena cava is normal in size. PERICARDIUM No pericardial effusion. Steven Coley MD (Electronically Signed) Final Date:14 March 2017 14:53
[2017-03-14] MEDS: traMADol HCL 50 MG TAB PO PRN ×2 (18:24→23:44)
[2017-03-14] MEDS: ATORVASTATIN 20 MG TAB PO SCH (20:09)
[2017-03-15] VITALS: BP 179/90; PULSE 63; RESP 16; TEMP 97.2; O2SAT 96
[2017-03-15] MEDS: INSULIN ASPART SUPPLEMENTAL SCALE SQ SCH ×2 (07:30→10:51)
[2017-03-15] MEDS: SODIUM CHLORIDE 0.9% FLUSH 5 ML FLUSH IV FLUSH SCH (07:30)
[2017-03-15 08:00] VITALS: BP 158/94; PULSE 64; RESP 20; TEMP 95.5; O2SAT 96
[2017-03-15 09:20] VITALS: PULSE 59
[2017-03-15] MEDS: DOCUSATE SODIUM 50 MG/SENNA 8.6 MG TAB PO SCH (09:23)
[2017-03-15] MEDS: REMOVE OLD PATCH T-DERMAL SCH (09:24)
[2017-03-15] MEDS: NICOTINE 21 MG/24 HR PATCH T-DERMAL SCH (09:24)
[2017-03-15] MEDS: NITROFURANTOIN MONOHYD MACROCR 100 MG CAP PO SCH (09:25)
[2017-03-15] MEDS: buPROPion HCL 150 MG SUSTAINED RELEASE TAB PO SCH (09:25)
[2017-03-15] MEDS: ASPIRIN 325 MG TAB PO SCH (09:25)
[2017-03-15] MEDS: LACTOBACILLUS ACIDOPHILUS TAB PO SCH ×2 (09:25→12:23)
[2017-03-15 12:00] VITALS: BP 160/90; PULSE 64; RESP 20; TEMP 95.6; O2SAT 100
--- NOTE | 2017-03-15 13:21 | HHI.DS ---
Discharge Summary Admission Date Mar 12, 2017 at 21:19 Discharge Date: Mar 15, 2017 Admitting Diagnosis CVA (1) Slurred speech ICD Code: R47.81 - Slurred speech Status: Acute (2) CVA (cerebral vascular accident) ICD Code: I63.9 - Cerebral infarction, unspecified Status: Acute Procedures none Brief History - From Admission This is a 61-year-old female with a history of CVA with no residual deficits, anemia, hyperlipidemia, PAD, COPD, basilar artery aneurysm, subarachnoid hemorrhage and tobacco abuse. She presents to the emergency department because of neuro symptoms. 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 She came home from work early yesterday morning and her noted that she was slurred and dragging her left lower extremity. She also felt she was dropping things from her left hand. She refused to come to the hospital and went to bed. She woke up later and did not notice any deficits and reported to work. When she arrived she felt nauseous and her coworkers noticed that she didn't look right. She drove back home and then came to the hospital. She has history of acute/subacute ischemic areas of small strokes of the right parietal and right cerebral lobes in April 2016 and has been taking aspirin. At this time, she feels better but still feels weak on the left upper and left lower extremities. Nausea has resolved and asking for food. Reports she had 4 loose stools after receiving oral contrast. Denies abdominal pain, fever, chills, headache, visual change, neck pain, chest pain and shortness of breath. All other systems reviewed negative. CBC/BMP: 03/12/17 1850 03/14/17 0527 Significant Findings Laboratory Tests Test 03/12/17 18:50 03/12/17 19:20 03/12/17 20:00 03/13/17 05:49 Neutrophils (%) (Auto) 70.8 % (16.0-70.0) Prothrombin Time 9.6 SEC (9.8-11.6) Blood Urea Nitrogen 19 MG/DL (7-18) Random Glucose 160 MG/DL (74-106) Troponin I LESS THAN 0.02 NG/ML Urine Specific [place] GREATER THAN 1.035 Urine Bacteria OCC /hpf (NONE) LDL Cholesterol 102 MG/DL (0-99) HDL Cholesterol 39.5 MG/DL (40.0-60.0) Test 03/13/17 07:50 03/14/17 05:27 Troponin I LESS THAN 0.02 NG/ML Creatinine 0.45 MG/DL (0.50-1.00) Random Glucose 107 MG/DL (74-106) Calcium Level 8.2 MG/DL (8.5-10.1) Potassium Level 3.4 MEQ/L (3.5-5.1) Chloride Level 110 MEQ/L (98-107) Imaging Last Impressions Head Magnetic Resonance Angiography 03/13/17 0000 Signed Impressions: Service Date/Time: Monday, March 13, 2017 13:15 - CONCLUSION: Stable abnormal appearance of the [place] structures. Evangelist Siegel MD Brain MRI 03/13/17 0000 Signed Impressions: Service Date/Time: Monday, March 13, 2017 13:15 - CONCLUSION: 1. Acute infarct involving insular cortex on the right side. No hemorrhage is seen. Mulugeta James MD Neck CTA [id number]/12/[id number] Signed Impressions: Service Date/Time: Sunday, March 12, 2017 19:27 - CONCLUSION: 1. No significant carotid stenosis. 2. Dominant right vertebral artery. Roberto Wood MD Head CTA [id number]/12/[id number] Signed Impressions: Service Date/Time: Sunday, March 12, 2017 19:27 - CONCLUSION: 1. Stable basilar tip aneurysm measuring 8 mm in greatest dimension. 2. No new stenosis or occlusion. 3. Stable ectatic carotid siphons and distal right vertebral artery. 4. Stable distal left vertebral artery aneurysms. 5. Patent posterior communicating artery is bilaterally. Roberto Wood MD Head CT [id number]/12/[id number] Signed Impressions: Service Date/Time: Sunday, March 12, 2017 19:27 - CONCLUSION: 1. Stable basilar tip aneurysm measuring approximately 6 mm. 2. Mild scattered periventricular white matter small vessel ischemic changes bilaterally. 3. Scattered old tiny lacunar infarcts within the bilateral basal ganglia. 4. No acute infarct, acute hemorrhage, midline shift or extra-axial fluid collections. Roberto Wood MD Chest X-Ray 03/12/17 1832 Signed Impressions: Service Date/Time: Sunday, March 12, 2017 19:00 - CONCLUSION: 1. No acute cardiopulmonary disease. 2. Degenerative changes and scoliosis of the thoracolumbar spine. Roberto Wood MD PE at Discharge GENERAL: This is a well-nourished, well-developed patient, in no apparent distress. CARDIOVASCULAR: Regular rate and rhythm without murmurs, gallops, or rubs. RESPIRATORY: Clear to auscultation. Breath sounds equal bilaterally. No wheezes , rales, or rhonchi. GASTROINTESTINAL: Abdomen soft, non-tender, nondistended. Normal active bowel sounds MUSCULOSKELETAL: Some left hand and arm weakness, other Extremities without clubbing, cyanosis, or edema. NEURO: Alert & Oriented x4 to person, place, time, situation. Moves all ext x4 Pt update on day of discharge Patient seen and evaluated today in follow-up for acute infarct. Continues with medications without difficulty. Discharge plans discussed with patient and with spouse at bedside Hospital Course This patient is a 61-year-old female who has a history of hypertension and was found to have an acute stroke with symptoms including slurred speech and left- sided weakness. Patient did improve throughout her hospitalization and was seen by the neurologist consultation. She was found to have right insular cortex infarct which is been managed medically. Pt Condition on Discharge: Good Discharge Disposition: Disch w/ Home Health Serv Discharge Time: > 30 minutes Discharge Instructions DIET: Follow Instructions for: Heart Healthy Diet Activities you can perform: Regular-No Restrictions Follow up Referrals: Neurology - 1 Week PCP Follow-up - 1 Week New Medications: Atorvastatin (Atorvastatin) 20 Mg Tab 20 MG PO HS for Cholesterol Management, #30 TAB Continued Medications: Aspirin (Aspirin) 325 Mg Tab 325 MG PO DAILY, #30 TAB 0 Refills Atenolol (Tenormin) 25 Mg Tab 25 MG PO BID for Blood Pressure Management, #60 TAB 0 Refills Bupropion HCl ER 12 HR (Wellbutrin SR 12 HR) 150 Mg Tab 150 MG PO Q12HR for Control Depression, TAB 0 Refills Tramadol (Tramadol) 50 Mg Tab 50 MG PO Q4H PRN for PAIN, TAB 0 Refills Verapamil (Verapamil) 120 Mg Tab 120 MG PO TID, #60 TAB 0 Refills Discontinued Medications: Nitrofurantoin Macrocrystal (Macrodantin) 100 Mg Cap 100 MG PO BID, CAP 0 Refills Leslie Cat MD Mar 15, 2017 13:21
== END 2017-03-15 14:23 | disposition home health service (06) | DRG 65 ==
LOC: PHED 18:12 → PHEDA 21:19 → PH3B 22:02
PROVIDERS: ADMIT Hospitalist; ATTEND Hospitalist
DX: I63.9 Cerebral infarction, unspecified (principal); G81.94 Hemiplegia, unspecified affecting left nondominant side; I67.1 Cerebral aneurysm, nonruptured; N39.0 Urinary tract infection, site not specified; I10 Essential (primary) hypertension; E78.5 Hyperlipidemia, unspecified; R47.1 Dysarthria and anarthria; Z86.73 Personal history of transient ischemic attack (TIA), and cerebral infarction without residual deficits; I73.9 Peripheral vascular disease, unspecified; F17.210 Nicotine dependence, cigarettes, uncomplicated; R19.7 Diarrhea, unspecified; J44.9 Chronic obstructive pulmonary disease, unspecified
CPT/HCPCS: 70450; 70496; 70498; 70544; 70551; 71010; 80048; 80053; 80061; 81001; 82550; 82948; 83036; 83735; 84484; 85025; 85610; 85730; 93005; 93306; J7030; Q9967